=== PATIENT | male | born 1970 | race Caucasian/White ===

== ENCOUNTER 2022-02-07 05:44 | Day surgery (SDC) | payer BC ==
[~2022-02-07 05:44] MED LIST: Lactated Ringers 1,000 ML IV ONE
[2022-02-07] MEDS ORDERED: Lactated Ringers 1,000 ML IV SCH (06:00)
[2022-02-07 06:15] VITALS: O2SAT 96
[2022-02-07] MEDS ORDERED: Lactated Ringers 1,000 ML IV ONE (06:19)
[2022-02-07] MEDS ORDERED: Xylocaine-Mpf 2% 5 Ml Vial ONE (07:25)
[2022-02-07] MEDS ORDERED: DIPRIVAN 200 MG/20 ML IV ONE ×2 (07:25→07:44)
[2022-02-07] MEDS ORDERED: Versed 2 MG/2 ML Injection ONE (07:25)
[2022-02-07] MEDS ORDERED: TRANDATE 20 MG/4 ML SYRINGE IV ONE (07:44)
[2022-02-07] MEDS ORDERED: APRESOLINE 20 MG/ML INJ IV PRN (08:18)
[2022-02-07 09:03] VITALS: BP 147/85; PULSE 70
--- NOTE | 2022-02-07 09:45 | OP ---
SURGERY DATE: 02/07/2022 SURGERY TIME: 723 PREOPERATIVE DIAGNOSIS: 1. RECTAL BLEEDING AND SCREENING EXAM. POSTOPERATIVE DIAGNOSIS: 1. EXTERNAL HEMORRHOIDS. 2. SMALL POLYP IN THE DESCENDING COLON. PROCEDURE: 1. Colonoscopy with hot snare polypectomy. SURGEON: Dr. Calvillo. ANESTHESIA: MAC. Medications given by the Anesthesia Department. BRIEF HISTORY: The patient is a 51 y/o WM patient who is a commercial truck driver. He reports he has been having bleeding off and on which he believes is from hemorrhoids over the past several months. The patient is felt to need to have endoscopic evaluation as he is 51 years of age and is eligible for screening examination also. The patient was appraised of the risks of the procedure including the risk of perforation, phlebitis, untoward reaction to medication, bleeding, and missed lesions. The patient verbalized his understanding and desired to have the procedure performed. DESCRIPTION OF PROCEDURE: The patient was given the medications by the Anesthesia Department. He had continuous pulse oximetry, ECG monitoring, and intermittent BP monitoring during the examination. He was placed in the left lateral decubitus position. A digital rectal examination was performed and revealed external hemorrhoids, normal anal sphincter tone, no masses, and a normal prostate. The flexible Olympus pediatric colonoscope was used to intubate the rectum. A view of the colon was developed sequentially to the cecum. Upon insertion and withdrawal, was noted an approximately 1 cm diameter polyp in the descending colon which was removed using the hot polypectomy snare and retrieved for pathologic evaluation. There were no other mucosal lesions encountered. The scope was removed from the patient who tolerated the procedure well and was sent back to OP recovery in good condition. The prep was noted to be fair to good.
== END 2022-02-07 09:05 | disposition home or self-care (01) ==
LOC: SDC 05:44
PROVIDERS: ATTEND Family Medicine
DX: Z12.11 Encounter for screening for malignant neoplasm of colon (principal); K62.5 Hemorrhage of anus and rectum; K64.4 Residual hemorrhoidal skin tags; D12.4 Benign neoplasm of descending colon
CPT/HCPCS: J0360; J2250; J2704